=== PATIENT | female | born 1965 | race African-American/Black ===

== ENCOUNTER 2018-02-16 10:33 | Emergency (ER) | payer OTHER ==
[2018-02-16] MEDS: HYDROcodone/APAP 5/325MG 1 TAB TABLET PO (13:13)
[2018-02-16] MEDS: KETOROLAC 60 MG/2 ML INJ. IM (13:14)
== END 2018-02-16 13:16 | disposition home or self-care (01) ==
LOC: ER 10:33
DX: S16.1XXA Strain of muscle, fascia and tendon at neck level, initial encounter (principal); M25.512 Pain in left shoulder; M25.511 Pain in right shoulder; M19.90 Unspecified osteoarthritis, unspecified site; K21.9 Gastro-esophageal reflux disease without esophagitis; I10 Essential (primary) hypertension; Z90.49 Acquired absence of other specified parts of digestive tract; G43.909 Migraine, unspecified, not intractable, without status migrainosus; V79.0 Driver of bus injured in collision with other and unspecified motor vehicles in nontraffic accident; Y93.89 Activity, other specified; Y99.8 Other external cause status; Y92.488 Other paved roadways as the place of occurrence of the external cause
CPT/HCPCS: 72125; 73030; 96372; 99284; J1885

== ENCOUNTER 2018-03-09 04:46 | Emergency (ER) | payer BC, OTHER ==
[2018-03-09] MEDS ORDERED: oxyCODONE/APAP 5/325 1 TAB TABLET PO (06:00)
== END 2018-03-09 05:47 | disposition left against medical advice (07) ==
LOC: ER 05:47
DX: L02.211 Cutaneous abscess of abdominal wall (principal); Z53.21 Procedure and treatment not carried out due to patient leaving prior to being seen by health care provider